=== PATIENT | male | born 1975 | race African-American/Black ===

== ENCOUNTER 2017-07-09 21:06 | Inpatient (IN) | payer SELFPAY ==
[2017-07-09 22:11] LABS: ADD MAN DIFF? NO
[2017-07-09 22:16] LABS: BASO % 1 % (0-3); EOS # 0.1 x10^3/uL (0.0-0.7); EOS % 1 % (0-3); HEMATOCRIT 43.8 % (39.0-53.0); HEMOGLOBIN 14.6 g/dL (13.0-17.5); LYMPH # 2.4 x10^3/uL (1.0-4.8); LYMPH % 37 % (24-48); MEAN CORPUSCULAR HEMOGLOBIN 31 pg (25-35); MEAN CORPUSCULAR HGB CONC 33 g/dL (31-37); MEAN CORPUSCULAR VOLUME 92 fL (79-100); MONO # 0.9 x10^3/uL (0.0-1.1); MONO % 13 % (0-9); NEUT # 3.2 x10^3uL (1.8-7.7); NEUT % 49 % (31-73); PLATELET COUNT 217 x10^3/uL (140-400); RED BLOOD COUNT 4.78 x10^6/uL (4.30-5.70); RED CELL DISTRIBUTION WIDTH 13.3 % (11.5-14.5); WHITE BLOOD COUNT 6.6 x10^3/uL (4.0-11.0)
[2017-07-09 22:18] LABS: BILIRUBIN,URINE NEGATIVE (NEG); CLARITY,URINE CLEAR; COLOR,URINE YELLOW; GLUCOSE,URINE NEGATIVE (NEG); NITRITE,URINE NEGATIVE (NEG); PH,URINE 5.5; PROTEIN,URINE NEGATIVE (NEG-TRACE)
[2017-07-09 22:25] LABS: ANION GAP 10 (6-14); BACTERIA,URINE 0 /HPF (0-FEW); BLOOD UREA NITROGEN 18 mg/dL (8-26); BUN/CREATININE RATIO 13 (6-20); CALCIUM 8.9 mg/dL (8.5-10.1); CARBON DIOXIDE 26 mmol/L (21-32); CHLORIDE 107 mmol/L (98-107); CREATININE 1.4 mg/dL (0.7-1.3); GFR 66.9; GLUCOSE 107 mg/dL (70-99); POTASSIUM 3.6 mmol/L (3.5-5.1); RBC,URINE OCC /HPF (0-2); SODIUM 143 mmol/L (136-145); SQUAMOUS EPITHELIAL CELL,UR FEW /LPF
[2017-07-09 22:31] LABS: ALBUMIN/GLOBULIN RATIO 1.1 (1.0-1.7); ALK PHOS 75 U/L (46-116); ALT (SGPT) 42 U/L (16-63); AST (SGOT) 25 U/L (15-37); TOTAL BILIRUBIN 0.9 mg/dL (0.2-1.0); TOTAL PROTEIN 7.7 g/dL (6.4-8.2)
[2017-07-09] MEDS ORDERED: ONDANSETRON PF 4 MG/2 ML VIAL. IV (23:00)
[2017-07-09] MEDS: IV NORMAL SALINE 1000ML BAG 1,000 ML IV (23:30)
[2017-07-10] MEDS: IV NORMAL SALINE 1000ML BAG 1,000 ML IV ×2 (07:30→15:30)
[2017-07-10] MEDS ORDERED: ACETAMINOPHEN 500 MG TABLET PO (09:30)
[2017-07-10] MEDS ORDERED: ONDANSETRON PF 4 MG/2 ML VIAL. IV ×2 (09:30→09:45)
[2017-07-10] MEDS ORDERED: PROCHLORPERAZINE 10 MG/2 ML VIAL. IV (09:45)
[2017-07-10] MEDS ORDERED: fentaNYL PF VIAL 100 MCG/2 ML VIAL IV ×2 (09:45)
[2017-07-10] MEDS ORDERED: MORPHINE SULFATE 2 MG/ML DISP.SYRIN. IV (09:45)
[2017-07-10] MEDS ORDERED: LIDOCAINE 1% PF 2 ML VIAL. ID (09:45)
[2017-07-10] MEDS ORDERED: HYDROmorphone 2 MG/ML VIAL IV (09:45)
[2017-07-10] MEDS: LISINOPRIL 20 MG TABLET PO (10:00)
[2017-07-10] MEDS: IV RINGERS,LACTATED 1000ML 1,000 ML IV (10:16)
[2017-07-10] MEDS ORDERED: LIDOCAINE 1% PF 5 ML VIAL. (10:48)
[2017-07-10] MEDS ORDERED: PROPOFOL 20 ML IV (10:48)
[2017-07-10] MEDS ORDERED: MIDAZOLAM HCL/PF 2 MG/2 ML VIAL. (10:48)
[2017-07-10] MEDS ORDERED: ONDANSETRON PF 4 MG/2 ML VIAL. (10:48)
[2017-07-10] MEDS ORDERED: fentaNYL PF VIAL 100 MCG/2 ML VIAL ×2 (10:48→13:00)
[2017-07-10] MEDS ORDERED: DEXAMETHASONE SOD PHOS 20 MG/5 ML VIAL. (10:48)
[2017-07-10] MEDS: BUPIVACAINE MPF 0.5% 30 ML VIAL. (11:09)
[2017-07-10] MEDS ORDERED: SEVOFLURANE 61 TO 120 MINUTES. IH (11:12)
[2017-07-10] MEDS ORDERED: ESMOLOL 100 MG/10 ML VIAL. IV (11:30)
[2017-07-10] MEDS ORDERED: MORPHINE SULFATE 10 MG/ML VIAL. (11:32)
[2017-07-10] MEDS: fentaNYL PF VIAL 100 MCG/2 ML VIAL IV ×3 (13:11→22:15)
[2017-07-10] MEDS: PHENAZOPYRIDINE 200 MG TABLET. PO (18:17)
[2017-07-10] MEDS: ACETAMINOPHEN 325 MG TABLET. PO (18:17)
[2017-07-10] MEDS: FAMOTIDINE 20 MG/2 ML VIAL IVP (22:13)
[2017-07-11] MEDS: ACETAMINOPHEN 325 MG TABLET. PO (07:41)
[2017-07-11] MEDS: LISINOPRIL 20 MG TABLET PO (07:42)
[2017-07-11] MEDS: PHENAZOPYRIDINE 200 MG TABLET. PO (07:42)
== END 2017-07-11 13:40 | disposition home or self-care (01) | DRG 909 ==
LOC: ER 21:06 → 4 NORTH 22:54
PROC: 0TJB8ZZ Inspection of Bladder, Via Natural or Artificial Opening Endoscopic (ICD-10-PCS; principal; 2017-07-10 10:53)
PROC: 0VQS0ZZ Repair Penis, Open Approach (ICD-10-PCS; 2017-07-10 10:53)
PROC: 0VCS0ZZ Extirpation of Matter from Penis, Open Approach (ICD-10-PCS; 2017-07-10 10:53)
DX: S39.840A Fracture of corpus cavernosum penis, initial encounter (principal); I10 Essential (primary) hypertension; X58.XXXA Exposure to other specified factors, initial encounter; Y93.89 Activity, other specified; Y92.89 Other specified places as the place of occurrence of the external cause; Y99.8 Other external cause status
CPT/HCPCS: 36415; 80053; 81001; 85025; 99285; 99285-25; J0690; J1100; J2250; J2270; J2405; J2704; J3010; J3490; J7030; J7120; S0028

== ENCOUNTER 2021-07-19 18:37 | Emergency (ER) | payer OTHER ==
[~2021-07-19] VITALS: Ht 172.7 cm; Wt 100.0 kg
[~2021-07-19 18:37] MED LIST: LISI-130 PO; PHEN-318 PO
[2021-07-19 19:00] VITALS: BP 150/95
[2021-07-19] MEDS ORDERED: CYCLOBENZAPRINE 10 MG TABLET. PO ONE (20:00)
[2021-07-19] MEDS ORDERED: IBUPROFEN 200 MG TABLET. PO ONE (20:00)
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
[2021-07-19] MEDS ORDERED: CYCL10TA19 PO (20:12)
[2021-07-19] MEDS ORDERED: IBUP-1007 PO (20:12)
== END 2021-07-19 20:12 | disposition home or self-care (01) ==
LOC: ER 18:37
DX: M54.50 Low back pain, unspecified (principal); I10 Essential (primary) hypertension; Z87.891 Personal history of nicotine dependence
CPT/HCPCS: 99283